=== PATIENT | male | born 1980 | race Hispanic/Latino ===

== ENCOUNTER 2023-07-10 13:51 | Emergency (ER) | payer OTHER, SELFPAY ==
[2023-07-10] MEDS ORDERED: Fluorescein Opthalmic Strip ONE (15:37)
[2023-07-10] MEDS ORDERED: Proparacaine 0.5% Opth 15 ML BOT ONE (15:37)
== END 2023-07-10 16:11 | disposition home or self-care (01) ==
LOC: ERS 13:51
DX: H10.9 Unspecified conjunctivitis (principal)
CPT/HCPCS: 99283